=== PATIENT | male | born 1950 | race Caucasian/White ===

== ENCOUNTER 2018-01-07 15:54 | Observation (INO) ==
--- NOTE | 2018-01-07 16:19 | Emergency Department Note ---
Disposition Clinical Impression: Chest pain Qualifiers: Chest pain type: unspecified Qualified Code(s): R07.9 - Chest pain, unspecified Disposition: Admitted As Inpatient Condition: Good Referrals: Rodrigue Bradford MD [Primary Care Provider] - Time of Disposition: 17:24 Chest Pain HPI - General Chief Complaint: ED Chest Pain Stated Complaint: Chest Pain Time Seen by Provider: 01/07/18 16:08 Source: patient Limitations: no limitations - History of Present Illness HPI Narrative: 57-year-old male presents "skipped heartbeats" now symptomatic and causing chest pain "it feels like the bone my chest is about to break," shortness of breath, and diaphoresis. He saw his local intermodal truck driver, Dr. Polo, a couple weeks ago and was having skipped beats at that point in time but no symptoms. His Cardizem dose was increased from 120-180. Past medical history of insulin-dependent type 2 diabetes, hypertension, chronic pain, GERD. Severity scale (1-10): 7 - Related Data Home Medications Medication Instructions Recorded Confirmed Albuterol Sulfate [Albuterol 2 puff IH Q6HR PRN 02/16/15 09/07/16 Inhaler] Aspirin 81 mg PO DAILY 02/16/15 09/07/16 Cetirizine HCl [Zyrtec] 10 mg PO DAILY 02/16/15 09/07/16 Lisinopril/Hydrochlorothiazide 1 each PO DAILY 02/16/15 09/07/16 [Zestoretic 20-25 mg Tablet] Metformin [Glucophage] 1,000 mg PO BID 02/16/15 09/07/16 Omeprazole [PriLOSEC] 40 mg PO DAILY 02/16/15 09/07/16 OxyCODONE/APAP 10/325 [Percocet 1 each PO Q6HR PRN 02/16/15 09/07/16 10/325 MG] Liraglutide [Victoza 3-Main] 1.8 mg SQ QPM 06/07/15 09/07/16 Insulin DETEMIR [Levemir] 50 unit SQ BID 09/07/16 09/07/16 Gabapentin [Neurontin] 600 mg PO BID 02/24/17 02/24/17 Pioglitazone [Actos] 45 mg PO 0800 10/12/17 10/12/17 Diltiazem CD (24hr) [Cardizem CD] 180 mg PO DAILY 01/07/18 01/07/18 Ibuprofen [Ibuprofen] 800 mg PO TID PRN 01/07/18 01/07/18 Previous Rx's Medication Instructions Recorded Ondansetron [Zofran] 8 mg PO Q8HR #20 tablet 10/14/15 Docusate [Colace] 100 mg PO BID #20 capsule 11/13/15 Allergies Allergy/AdvReac Type Severity Reaction Status Date / Time amiodarone Allergy Difficulty Verified 01/07/18 16:11 Breathing canagliflozin [From Invokana] Allergy Rash Verified 01/07/18 16:11 iodine Allergy Anaphylaxis Verified 01/07/18 16:11 linagliptin [From Tradjenta] Allergy Rash Verified 01/07/18 16:11 Constitutional: Denies: fever, chills Eyes: Reports: vision change (blurry vision) Cardiovascular: Reports: chest pain, palpitations Respiratory: Reports: dyspnea Gastrointestinal: Reports: nausea. Denies: abdominal pain, vomiting, diarrhea Chest Pain PMH - Past Medical History Medical history: Reports: arthritis, asthma, atrial fibrillation, CHF, diabetes , GERD, hypertension, other Surgical history: Reports: orthopedic, other, prostatectomy, other Psychiatric history: Reports: depression - Social History Smoking Status: Never smoker Alcohol use: Reports: none Drug use: Reports: none Physical Exam - General Limitations: no limitations General appearance: alert, in no apparent distress - Head Head exam: atraumatic, normocephalic, normal inspection - Eye Eye exam: Present: normal appearance, PERRL, EOMI - ENT ENT exam: mucous membranes moist - Neck Neck exam: Present: normal inspection - Chest Chest inspection: Present: normal inspection, symmetric chest wall rise - Respiratory Respiratory exam: Present: normal lung sounds bilaterally - Cardiovascular Cardiovascular exam: Present: regular rate, normal rhythm, normal heart sounds - Abdominal Exam Abdominal exam: Present: soft, Non-Tender. Absent: tenderness, distention, guarding, rebound, rigidity - Extremities Exam Extremities exam: Present: normal inspection - Back Exam Back exam: Present: normal inspection - Neurological Exam Neurological exam: Present: alert, oriented X3 - Psychiatric Psychiatric exam: Present: normal affect, normal mood - Skin Skin exam: Present: warm, dry, intact, normal color Course Vital Signs Temperature 99.5 F 01/07/18 16:06 Pulse Rate 87 01/07/18 16:06 Respiratory Rate 16 01/07/18 16:06 Blood Pressure 118/76 01/07/18 16:06 O2 Sat by Pulse Oximetry 94 01/07/18 16:06 Temperature 99.5 F 01/07/18 16:06 Pulse Rate 87 01/07/18 16:06 Respiratory Rate 16 01/07/18 16:06 Blood Pressure 118/76 01/07/18 16:06 O2 Sat by Pulse Oximetry 94 01/07/18 16:06 Oxygen Delivery Oxygen Delivery Room Air Chest Pain - MDM Narrative Medical decision making narrative: 67 yo male with symptomatic palpitations. He has had palpitations without symptoms for approximately one month. He saw his local intermodal truck driver a couple weeks ago, who increased his Cardizem dose. The symptoms he is currently experiencing are chest pain, shortness of breath, and diaphoresis. He does not have a history of coronary artery disease; however, he does have past medical history of diabetes, hypertension and obesity with a BMI of 37. Normal initial laboratory workup. We will admit to the hospital to trend troponins and follow- up with a possible stress test in the morning. - Medical Records Medical records reviewed: Yes I reviewed the patient's medical records. History of atrial flutter s/p VIVI cardioversion 06/2015. On cardizem - rate was increased from 120 mg to 180 mg 12/14/2017 due to PACs. - Lab Data Lab results reviewed: Yes I reviewed the patient's lab results. - EKG Data EKG attestation: Yes I reviewed and interpreted this EKG. EKG shows normal: sinus rhythm, axis, intervals, QRS complexes Rate: normal Rhythm: NSR [place]/QRS: normal QTc: borderline Ectopy: PAC Interpretation: unchanged when compared to prior tracing (date), nonspecific ST- T wave changes Heart Score - Score History: Slightly Suspicious EKG: Non Specific repolarisation Disturbance Age: 45-65 Risk Factors: Equal/Greater than 3 risk factor or history of atherosclerotic disease Troponin: Less than normal limit HEART Score Total: 4
[2018-01-07] MEDS ORDERED: Nitroglycerin 0.4 MG TAB.SUBL SL PRN (16:37)
[2018-01-07 16:47] LABS: Basophils # 0.1 K/mcL (0.0-0.2); Basophils % 0.5 %; Eosinophils # 0.2 K/mcL (0.0-0.6); Eosinophils % 1.8 %; Hematocrit 43.8 % (37.5-50.1); Hemoglobin 14.5 g/dL (12.9-16.9); Immature Granulocytes % 0.6 % (0-4); Lymphocytes # 1.5 K/mcL (0.6-4.6); Lymphocytes % 15.8 %; Mean Corpuscular HGB Conc 33.1 g/dL (31.6-35.5); Mean Corpuscular Hemoglobin 28.7 pg (28.0-33.3); Mean Corpuscular Volume 86.7 fL (83.0-100.0); Mean Platelet Volume 10.5 fL (9.4-12.4); Monocytes # 0.7 K/mcL (0.0-1.3); Monocytes % 7.8 %; Platelet Count 239 K/mcL (140-400); Red Blood Count 5.05 M/mcL (4.19-5.50); Segmented Neutrophils % 73.5 %
[2018-01-07 16:51] LABS: Prothrombin Time 11.6 Seconds (9.4-12.1)
--- NOTE | 2018-01-07 16:57 | Emergency Department Note ---
Disposition Clinical Impression: Unstable angina Disposition: Admitted As Inpatient Forms: ED Satisfaction Letter General Adult HPI - General Chief complaint: ED Chest Pain Stated complaint: Chest Pain Time Seen by Provider: 01/07/18 16:08 Source: patient Limitations: no limitations - History of Present Illness Pain Scale: 7 - Related Data Home Medications Medication Instructions Recorded Confirmed Albuterol Sulfate [Albuterol 2 puff IH Q6HR PRN 02/16/15 09/07/16 Inhaler] Aspirin 81 mg PO DAILY 02/16/15 09/07/16 Cetirizine HCl [Zyrtec] 10 mg PO DAILY 02/16/15 09/07/16 Lisinopril/Hydrochlorothiazide 1 each PO DAILY 02/16/15 09/07/16 [Zestoretic 20-25 mg Tablet] Metformin [Glucophage] 1,000 mg PO BID 02/16/15 09/07/16 Omeprazole [PriLOSEC] 40 mg PO DAILY 02/16/15 09/07/16 OxyCODONE/APAP 10/325 [Percocet 1 each PO Q6HR PRN 02/16/15 09/07/16 10/325 MG] Liraglutide [Victoza 3-Main] 1.8 mg SQ QPM 06/07/15 09/07/16 Insulin Aspart Prot/Insuln Asp 25 units SQ TIDWM 09/07/16 09/07/16 [Novolog Mix 70-30 Vial] Insulin DETEMIR [Levemir] 50 unit SQ BID 09/07/16 09/07/16 Gabapentin [Neurontin] 600 mg PO BID 02/24/17 02/24/17 Pioglitazone [Actos] 45 mg PO 0800 02/24/17 02/24/17 Previous Rx's Medication Instructions Recorded Diltiazem CD (24hr) [Cardizem CD] 120 mg PO DAILY #30 cap.er.24h 06/30/15 Ondansetron [Zofran] 8 mg PO Q8HR #20 tablet 10/14/15 Docusate [Colace] 100 mg PO BID #20 capsule 11/13/15 Cyclobenzaprine [Flexeril] 10 mg PO TID PRN #21 tablet 11/05/17 predniSONE [PredniSONE] 20 mg PO BIDWM #10 tablet 11/05/17 Allergies Allergy/AdvReac Type Severity Reaction Status Date / Time amiodarone Allergy Difficulty Verified 01/07/18 16:11 Breathing canagliflozin [From Invokana] Allergy Rash Verified 01/07/18 16:11 iodine Allergy Anaphylaxis Verified 01/07/18 16:11 linagliptin [From Tradjenta] Allergy Rash Verified 01/07/18 16:11 Constitutional: Denies: fever, chills Eyes: Reports: vision change (blurry vision) Cardiovascular: Reports: chest pain, palpitations Respiratory: Reports: dyspnea Past Medical History - Past Medical History Medical history: Reports: arthritis, asthma, atrial fibrillation, CHF, diabetes , GERD, hypertension, other Surgical history: Reports: orthopedic, other, prostatectomy, other Psychiatric history: Reports: depression - Social History Smoking Status: Never smoker Smokeless Tobacco Status: No Alcohol use: Reports: none Drug use: Reports: none Physical Exam - General Limitations: no limitations General appearance: alert, in no apparent distress Course Vital Signs Temperature 99.5 F 01/07/18 16:06 Pulse Rate 87 01/07/18 16:06 Respiratory Rate 16 01/07/18 16:06 Blood Pressure 118/76 01/07/18 16:06 O2 Sat by Pulse Oximetry 94 01/07/18 16:06 Temperature 99.5 F 01/07/18 16:06 Pulse Rate 87 01/07/18 16:06 Respiratory Rate 16 01/07/18 16:06 Blood Pressure 118/76 01/07/18 16:06 O2 Sat by Pulse Oximetry 94 01/07/18 16:06 Oxygen Delivery Oxygen Delivery Room Air Medical Decision Making - Lab Data Result diagrams: 01/07/18 16:37 Lab Results 01/07/18 01/07/18 Range/Units 16:37 16:37 WBC 9.5 (4.3-11.1) K/mcL RBC 5.05 (4.19-5.50) M/mcL Hgb 14.5 (12.9-16.9) g/dL Hct 43.8 (37.5-50.1) % MCV 86.7 (83.0-100.0) fL MCH 28.7 (28.0-33.3) pg MCHC 33.1 (31.6-35.5) g/dL RDW 14.0 (11.5-14.5) % Plt Count 239 (140-400) K/mcL MPV 10.5 (9.4-12.4) fL Immature Gran % 0.6 (0-4) % Seg Neutrophils % 73.5 % Lymphocytes % 15.8 % Monocytes % 7.8 % Eosinophils % 1.8 % Basophils % 0.5 % Neutrophils # 7.0 (1.6-8.9) K/mcL Lymphocytes # 1.5 (0.6-4.6) K/mcL Monocytes # 0.7 (0.0-1.3) K/mcL Eosinophils # 0.2 (0.0-0.6) K/mcL Basophils # 0.1 (0.0-0.2) K/mcL PT 11.6 (9.4-12.1) Seconds INR 1.0 APTT 33.0 (26.0-36.0) Seconds Attestation Statement - Attestation Attestation: I examined this patient and my medical decision-making was reviewed with the Resident Physician. I agree with the documented findings, disposition and treatment plan as described except to the extent set forth below. 67-year-old male presents to the ER for chest pain. Substernal. Associated with nausea and some diaphoresis and shortness of breath. History of paroxysmal intrafibrillation was status post ablation and currently on Cardizem. Patient is not on Coumadin. He has not had a heart catheter in a few years. He has no previous cardiac stents. He has a known diabetic. Patient will need be admitted for ACS evaluation and possible stress test.
[2018-01-07 17:08] LABS: BUN/Creatinine Ratio 21 (6-26); Blood Urea Nitrogen 20 mg/dL (8-23); Calcium 9.5 mg/dL (8.6-10.3); Carbon Dioxide 24 mEq/L (23-29); Chloride 103 mEq/L (98-107); Glucose 212 mg/dL (70-105); Osmolality,Calculated 293 (280-300); Potassium 3.8 mEq/L (3.5-5.1); Sodium 137 mEq/L (136-145); eGFR For Non-African Americans > 60 (> 60)
[2018-01-07 17:09] LABS: Troponin I < 0.03 ng/mL (< 0.04)
[2018-01-07] MEDS ORDERED: Naloxone 0.4 MG/ML INJ IVP PRN (17:33)
[2018-01-07] MEDS ORDERED: *HR* HYDROcodone/Acet 5/325 mg TABLET PO PRN (17:33)
[2018-01-07] MEDS ORDERED: Acetaminophen 325 MG TABLET PO PRN (17:33)
[2018-01-07] MEDS ORDERED: Ondansetron 4 MG/2 ML VIAL IVP PRN (17:33)
[2018-01-07] MEDS ORDERED: *HR* OxyCODONE/APAP 10/325 TABLET PO PRN (17:35)
--- NOTE | 2018-01-07 18:56 | Internal Med History&Physical ---
Date of Encounter: 01/07/18 Time of Encounter: 18:00 Internal Medicine - H&P: HPI Chief complaint: Chest pain Admitted From: Emergency Dept Plans for Post Hospital Care: Home History of present illness: Mr. Vides is a 67 year old male with known past medical history of hypertension , hyperlipidemia, diabetes, Gerd and paroxysmal atrial flutter pt presented to ER with chest pain located left chest wall and sub sternal region, radiating to left arm, started this morning, intermittent pain and sharp pain. He did feel like the bone my chest is about to break. He denied any active CP now. He saw his campus executive director, Dr. Polo, a couple weeks ago and was having skipped beats at that point in time but no symptoms. His Cardizem dose was increased from 120 -180. Past Med Surg Social Fam HX - Past Medical History Medical history: arthritis, asthma, atrial fibrillation, CHF, diabetes, GERD, hypertension, other Additional medical history: NEUROPATHY, KIDNEY CYSTS, SCIATIA Psychiatric history: depression - Past Surgical History Surgical History: orthopedic, other, prostatectomy, other Additional surgical history: back sx. - Social History Smoking Status: Never smoker Smokeless Tobacco Status: No Alcohol use: none Drug use: none - Family History Maternal Grandmother Hx Family Cardiac Disorders: Yes Mother Family Member Ethnicity: Non- Living Status: Hx Family Cardiac Disorders: Yes Internal Medicine - H&P: Meds Albuterol Sulfate [Albuterol Inhaler] 2 puff IH Q6HR PRN 02/16/15 [History] Aspirin 81 mg PO DAILY 02/16/15 [History] Cetirizine HCl [Zyrtec] 10 mg PO DAILY 02/16/15 [History] Lisinopril/Hydrochlorothiazide [Zestoretic 20-25 mg Tablet] 1 each PO DAILY 08/28 [History] Metformin [Glucophage] 1,000 mg PO BID 02/16/15 [History] Omeprazole [PriLOSEC] 40 mg PO DAILY 02/16/15 [History] OxyCODONE/APAP 10/325 [Percocet 10/325 MG] 1 each PO Q6HR PRN 02/16/15 [History] Liraglutide [Victoza 3-Main] 1.8 mg SQ QPM 06/07/15 [History] Ondansetron [Zofran] 8 mg PO Q8HR #20 tablet 10/14/15 [Rx] Docusate [Colace] 100 mg PO BID #20 capsule 11/13/15 [Rx] Insulin DETEMIR [Levemir] 50 unit SQ BID 09/07/16 [History] Gabapentin [Neurontin] 600 mg PO BID 02/24/17 [History] Pioglitazone [Actos] 45 mg PO 0800 02/24/17 [History] Diltiazem CD (24hr) [Cardizem CD] 180 mg PO DAILY 01/07/18 [History] Ibuprofen [Ibuprofen] 800 mg PO TID PRN 01/07/18 [History] 3 Allergy/AdvReac Type Severity Reaction Status Date / Time amiodarone Allergy Difficulty Verified 01/07/18 16:11 Breathing canagliflozin [From Invokana] Allergy Rash Verified 01/07/18 16:11 iodine Allergy Anaphylaxis Verified 01/07/18 16:11 linagliptin [From Tradjenta] Allergy Rash Verified 01/07/18 16:11 All Systems PM: A 10-system review of systems was performed and is negative for pertinent findings except as documented above in the HPI. Review of systems: All the systems are reviewed everything is benign except the systems and symptoms I mentioned in the history of present illness - Constitutional Vitals: Temp Pulse Resp BP Pulse Ox 99.5 F 85 17 117/79 94 01/07/18 16:06 01/07/18 17:28 01/07/18 17:28 01/07/18 17:28 01/07/18 17:28 General appearance: Present: cooperative, A&O X 3, no acute distress, answers questions appropriately Exam: see below - Head Head exam: Present: atraumatic, normal inspection - Neck Neck exam general surgery: Present: supple - Respiratory Respiratory exam: Present: decreased breath sounds. Absent: rales, respiratory distress, rhonchi, wheezes - Cardiovascular Cardiovascular exam: Present: RRR, +S1, +S2. Absent: tachycardia - GI/Abdominal GI/Abdominal exam: Present: normal bowel sounds, soft. Absent: rebound, rigid, tenderness - Extremities Exam Extremities exam: Absent: calf tenderness, pedal edema, tenderness - Back Exam Back exam: Absent: CVA tenderness (L), CVA tenderness (R) - Neurological Exam Neurological exam: Present: alert, oriented X3 - Psychiatric Psychiatric exam: Present: normal affect, normal mood - Skin Skin exam: Absent: rash Internal Med - H&P Results - Labs CBC & Chem 7: 01/07/18 16:37 01/07/18 16:37 - Assessment and plan (1) Chest pain Current Visit: Yes Status: Acute Assessment and plan: Will admit the pt into Tele for observation Will place pt on telemetry monitor check serial troponin so far negative troponin EKG reviewed - no acute ischemic changes Cont ASA, and Nitro PRN for pain Will check FLP in AM Will get stress test on Tuesday since pt is high risk for ACS Qualifiers: Chest pain type: unspecified Qualified Code(s): R07.9 - Chest pain, unspecified (2) Paroxysmal atrial flutter Current Visit: Yes Status: Acute Assessment and plan: rate controlled with Cardizem on ASA 81mg for anti coag he had bleeding issues with ASA 325mg in the past (3) Diabetes mellitus type II, controlled Current Visit: No Status: Chronic Assessment and plan: on Levemir + ISS Qualifiers: Diabetes mellitus correction insulin use: with correction use Diabetes mellitus complication status: without complication Qualified Code(s): E11.9 - Type 2 diabetes mellitus without complications; Z79.4 - technician terminal and repeater (current) use of insulin (4) Hypertension Current Visit: No Status: Chronic Assessment and plan: stable resumed home meds Qualifiers: Hypertension type: essential hypertension Qualified Code(s): I10 - Essential (primary) hypertension - Time Spent With Patient Total time spent is greater than 50% in coordination of care (as documented) at patient's floor/unit and/or counseling patient:
[2018-01-07] MEDS ORDERED: D5% in Water 1,000 ML IVC PRN (19:01)
[2018-01-07] MEDS ORDERED: *HR* Dextrose 50 % in Water (Syg) 50 ML SYRINGE IVP PRN (19:01)
[2018-01-07] MEDS ORDERED: Dextrose Gel 15 GM/37.5 ML TUBE PO PRN ×2 (19:01)
[2018-01-07] MEDS: Insulin LISPRO 300 UNITS/3 ML VIAL SQ SCH (20:59)
[2018-01-07] MEDS: Insulin DETEMIR 100 UNIT/ML X5UNITS SQ SCH (21:01)
[2018-01-07] MEDS: Gabapentin 300 MG CAPSULE PO SCH (21:01)
[2018-01-08 05:23] LABS: Troponin I < 0.03 ng/mL (< 0.04)
[2018-01-08 05:24] LABS: Chol/HDL Ratio 6.2 (0-4.9); Cholesterol 156 mg/dL (< 200); HDL Cholesterol 25 mg/dL (40-59); LDL Cholesterol,Calculated 52 mg/dL (0-99); Triglycerides 393 mg/dL (< 150)
[2018-01-08] MEDS: Insulin LISPRO 300 UNITS/3 ML VIAL SQ SCH ×4 (08:38→20:21)
[2018-01-08] MEDS: Loratadine 10 MG TABLET PO SCH (08:39)
[2018-01-08] MEDS: Diltiazem CD (24hr) 180 MG CAPSULE PO SCH (08:39)
[2018-01-08] MEDS: Gabapentin 300 MG CAPSULE PO SCH ×2 (08:39→20:22)
[2018-01-08] MEDS: Aspirin 81 MG TAB.CHEW PO SCH (08:39)
[2018-01-08] MEDS: Insulin DETEMIR 100 UNIT/ML X5UNITS SQ SCH ×2 (08:44→20:22)
--- NOTE | 2018-01-08 13:56 | Internal Med Progress Note ---
Hospitalist Progress Note - Encounter Date of Encounter: 01/08/18 Time of Encounter: 10:00 - Subjective Interval History: Mr. Vides is a 67 year old male with known past medical history of hypertension , hyperlipidemia, diabetes, Gerd and paroxysmal atrial flutter pt presented to ER with chest pain located left chest wall and sub sternal region, radiating to left arm. Pt denied any more CP. No SOB. - Exam Vitals: Temp Pulse Resp BP Pulse Ox 98.1 F 82 16 132/83 95 01/08/18 11:59 01/08/18 11:59 01/08/18 11:59 01/08/18 11:59 01/08/18 11:59 Exam: Gen: Alert, awake, Oriented to time,place and person Chest: Diminished breath sounds B/L, No wheezing, No crackles, No rales Heart: S1S2+ RRR No murmurs Abd: Soft, NT, BS +, No organomegaly Ext: No edema, pulses are palpable, No calf tenderness Neuro : Benign findings Skin: No rash. - Assessment and Plan (1) Chest pain Current Visit: Yes Status: Acute Assessment and Plan: Trop x 3 negative EKG reviewed - no acute ischemic changes Cont ASA, and Nitro PRN for pain Reviewed FLP Will get stress test in AM since pt is high risk for ACS (2) Paroxysmal atrial flutter Current Visit: Yes Status: Acute Assessment and Plan: rate controlled with Cardizem on ASA 81mg for anti coag he had bleeding issues with ASA 325mg in the past (3) Diabetes mellitus type II, controlled Current Visit: No Status: Chronic Assessment and Plan: on Levemir + ISS (4) Hypertension Current Visit: No Status: Chronic Assessment and Plan: stable with home meds - Time Spent with Patient Total time spent is greater than 50% in coordination of care (as documented) at patient's floor/unit and/or counseling patient: Internal Medicine: Result - Labs CBC & Chem 7: 01/07/18 16:37 01/07/18 16:37 Labs: Cardiac Enzymes 01/07/18 01/08/18 Range/Units 22:44 04:25 Troponin I < 0.03 < 0.03 (< 0.04) ng/mL - ABG Interpretation ABG results: PT/INR, D-dimer PT 11.6 Seconds (9.4-12.1) 01/07/18 16:37 Consult Discharge Plan - Plan Referrals: Rodrigue Bradford MD [Primary Care Provider] - (1) Chest pain Qualifiers: Chest pain type: unspecified Qualified Code(s): R07.9 - Chest pain, unspecified (3) Diabetes mellitus type II, controlled Qualifiers: Diabetes mellitus mcc insulin use: with terminal block assembler use Diabetes mellitus complication status: without complication Qualified Code(s): E11.9 - Type 2 diabetes mellitus without complications; Z79.4 - termite exterminator (current) use of insulin (4) Hypertension Qualifiers: Hypertension type: essential hypertension Qualified Code(s): I10 - Essential (primary) hypertension
[2018-01-09] MEDS ORDERED: Regadenoson 0.4 MG/5 ML SYRINGE IVP ONE ×2 (07:37→07:55)
[2018-01-09] MEDS: Insulin LISPRO 300 UNITS/3 ML VIAL SQ SCH ×2 (09:08→11:45)
[2018-01-09] MEDS: Insulin DETEMIR 100 UNIT/ML X5UNITS SQ SCH (09:15)
[2018-01-09] MEDS: Diltiazem CD (24hr) 180 MG CAPSULE PO SCH (10:10)
[2018-01-09] MEDS: Gabapentin 300 MG CAPSULE PO SCH (10:11)
[2018-01-09] MEDS: Aspirin 81 MG TAB.CHEW PO SCH (10:11)
[2018-01-09] MEDS: Loratadine 10 MG TABLET PO SCH (10:11)
[2018-01-09 11:33] VITALS: BP 108/71
--- NOTE | 2018-01-09 12:17 | Discharge Summary ---
- NOTES TO OUTPATIENT PROVIDER Notes to Outpatient Provider: f/u with PCP in one week. f/u with Cardiology in 1- 2 weeks to discuss about switching to Metoprolol from Cardizem since it is not working for you and you still have skipped beats. Talk to your PCP to take you off the diabetic medication Actos that can worsen your shortness of breath and heart failure symptoms. Also talk to PCP , to schedule for an out pt sleepp study. Orders not resulted at time of discharge: Pending orders 01/08/18 13:56 NM gera perf SPECT multi [NM] Routine Date of Encounter: 01/09/18 Time of Encounter: 12:14 - Discharge Diagnosis (1) Chest pain Priority: Primary Status: Acute Qualifiers: Chest pain type: unspecified Qualified Code(s): R07.9 - Chest pain, unspecified (2) Paroxysmal atrial flutter Priority: Secondary Status: Acute (3) Diabetes mellitus type II, controlled Priority: Secondary Status: Chronic Qualifiers: Diabetes mellitus alf insulin use: with alf use Diabetes mellitus complication status: without complication Qualified Code(s): E11.9 - Type 2 diabetes mellitus without complications; Z79.4 - snf (current) use of insulin (4) Hypertension Priority: Secondary Status: Chronic Qualifiers: Hypertension type: essential hypertension Qualified Code(s): I10 - Essential (primary) hypertension Hospital course: Mr. Vides is a 67 year old male with known past medical history of hypertension , hyperlipidemia, diabetes, Gerd and paroxysmal atrial flutter pt presented to ER with chest pain located left chest wall and sub sternal region, radiating to left arm, started this morning, intermittent pain and sharp pain. He did feel like the bone my chest is about to break. He saw his sleeve maker, Dr. Polo, a couple weeks ago and was having skipped beats at that point in time but no symptoms. His Cardizem dose was increased from 120-180. Pt was admitted int he hospital and placed him on tele, checked his serial troponin which were negative. He denied any active CP now. He did go for stress test today which came back as negative for any ischemia. So will d/c the pt in stable condition today. - Time Spent with Patient Total time spent providing and/or coordinating discharge services: - Discharge Medications Home Medications: Albuterol Sulfate [Albuterol Inhaler] 2 puff IH Q6HR PRN 02/16/15 [History] Aspirin 81 mg PO DAILY 02/16/15 [History] Cetirizine HCl [Zyrtec] 10 mg PO DAILY 02/16/15 [History] Lisinopril/Hydrochlorothiazide [Zestoretic 20-25 mg Tablet] 1 each PO DAILY 08/28 [History] Metformin [Glucophage] 1,000 mg PO BID 02/16/15 [History] Omeprazole [PriLOSEC] 40 mg PO DAILY 02/16/15 [History] OxyCODONE/APAP 10/325 [Percocet 10/325 MG] 1 each PO Q6HR PRN 02/16/15 [History] Liraglutide [Victoza 3-Main] 1.8 mg SQ QPM 06/07/15 [History] Ondansetron [Zofran] 8 mg PO Q8HR #20 tablet 10/14/15 [Rx] Docusate [Colace] 100 mg PO BID #20 capsule 11/13/15 [Rx] Insulin DETEMIR [Levemir] 50 unit SQ BID 09/07/16 [History] Gabapentin [Neurontin] 600 mg PO BID 02/24/17 [History] Pioglitazone [Actos] 45 mg PO 0800 02/24/17 [History] Diltiazem CD (24hr) [Cardizem CD] 180 mg PO DAILY 01/07/18 [History] Nitroglycerin 0.4 mg SL Q5MIN PRN tab.subl 01/09/18 [Rx] Allergies/Adverse Reactions: 3 Allergy/AdvReac Type Severity Reaction Status Date / Time amiodarone Allergy Difficulty Verified 01/07/18 16:11 Breathing canagliflozin [From Invokana] Allergy Rash Verified 01/07/18 16:11 iodine Allergy Anaphylaxis Verified 01/07/18 16:11 linagliptin [From Tradjenta] Allergy Rash Verified 01/07/18 16:11 Date of admission: 01/07/18 17:39 Primary care physician: Rodrigue Bradford MD - Constitutional Vitals: Temp Pulse Resp BP Pulse Ox 98.4 F 81 16 108/71 95 01/09/18 11:32 01/09/18 11:32 01/09/18 11:32 01/09/18 11:32 01/09/18 11:32 General appearance: Present: cooperative, A&O X 3, no acute distress, answers questions appropriately Exam: Gen: Alert, awake, Oriented to time,place and person Chest: Diminished breath sounds B/L, No wheezing, No crackles, No rales Heart: S1S2+ RRR No murmurs Abd: Soft, NT, BS +, No organomegaly Ext: No edema, pulses are palpable, No calf tenderness Neuro : Benign findings Skin: No rash. - Patient Status Disposition: Home, Self-Care Condition: Good Overall status at discharge: patient is back to baseline - Discharge Instructions Instructions: Chest Pain (DC), Diabetes Mellitus Type 2 in Adults (DC), Chronic Hypertension (DC) Follow Up With: Rodrigue Bradford MD [Primary Care Provider] - 01/12/18 11:30 am Rodney Polo MD [Partnered Physician] - - Diet and Activity Activity: increase activity as tolerated Diet: low salt diet
--- NOTE | 2018-01-09 18:11 | Electrocardiograph Report ---
[place] [id number] Test Date: 2018-01-07 Pat Name: Jacob Vides Department: EXAM6 Room: 3B Gender: M Exterminator Termite: : [id number] Requested By: Cyndi Ogden Order Number: [id number] Reading MD: Miguel Wagner Measurements Intervals [place] Rate: 88 P: 55 GA: 159 QRS: 75 QRSD: 95 T: 78 QT: 370 QTc: 448 Interpretive Statements Sinus rhythm Atrial premature complex Nonspecific ST-T changes Electronically Signed On 01-09-2018 18:09:49 EDT by Miguel Wagner
== END 2018-01-09 13:19 | disposition home or self-care (01) ==
LOC: 3BNU 15:54 → EMEROOARM 15:54 → 3BNU 18:13
PROVIDERS: ADMIT Family Medicine; ATTEND Internal Medicine

== ENCOUNTER 2020-10-02 21:33 | Inpatient (IN) ==
[2020-10-02] MEDS ORDERED: Naloxone 0.4 MG/ML INJ IVP PRN (23:45)
[2020-10-03] MEDS ORDERED: Remdesivir 200 MG in 0.9 % Sodium Chloride 100 ML IVPB ONE (00:29)
[2020-10-03] MEDS: Acetaminophen 325 MG TABLET PO PRN ×2 (00:32→11:00)
[2020-10-03] MEDS ORDERED: *HR* Dextrose 50 % in Water (Vial) 50 ML VIAL IVP PRN (00:34)
[2020-10-03] MEDS ORDERED: Dextrose Gel 15 GM/37.5 ML TUBE PO PRN ×2 (00:34)
[2020-10-03] MEDS ORDERED: D5% in Water 1,000 ML IVC PRN (00:34)
[2020-10-03] MEDS ORDERED: *HR* OxyCODONE/APAP 10/325 TABLET PO PRN (00:36)
[2020-10-03] MEDS ORDERED: Insulin DETEMIR 100 UNIT/ML X5UNITS SUBQ SCH ×2 (00:45→21:00)
[2020-10-03] MEDS: Ipratropium 1 PUFF INHALER IH SCH ×6 (03:34→20:14)
[2020-10-03] MEDS ORDERED: *HR* Enoxaparin 40 MG/0.4 ML SYRINGE SQ SCH (06:00)
[2020-10-03 08:31] LABS: Alanine Aminotransferase 50 Units/L (7-52); Albumin 3.4 g/dL (3.5-5.7); Albumin/Globulin Ratio 1.2 (1.1-2.2); Alkaline Phosphatase 42 Units/L (34-104); Aspartate Amino Transferase 87 Units/L (13-39); BUN/Creatinine Ratio 20 (6-26); Bilirubin,Direct 0.1 mg/dL (0.0-0.2); Bilirubin,Indirect 0.2 mg/dL (0.0-1.0); Bilirubin,Total 0.3 mg/dL (0.3-1.0); Blood Urea Nitrogen 18 mg/dL (8-23); Calcium 8.4 mg/dL (8.6-10.3); Carbon Dioxide 28 mEq/L (23-29); Chloride 97 mEq/L (98-107); Chol/HDL Ratio 3.6 (0-4.9); Cholesterol 90 mg/dL (< 200); Globulin 2.9 g/dL (2.4-3.5); Glucose 284 mg/dL (70-105); HDL Cholesterol 25 mg/dL (40-59); LDL Cholesterol,Calculated 40 mg/dL (< 100); Osmolality,Calculated 290 (280-300); Potassium 3.6 mEq/L (3.5-5.1); Sodium 134 mEq/L (136-145); Total Protein 6.3 g/dL (6.4-8.9); Triglycerides 123 mg/dL (< 150); Troponin I 0.03 ng/mL (< 0.04); eGFR For African Americans > 60 (> 60); eGFR For Non-African Americans > 60 (> 60)
[2020-10-03] MEDS ORDERED: cefTRIAXone 1,000 MG in Water for inj. (sterile) 10 ML IVP SCH (09:00)
[2020-10-03] MEDS: Insulin LISPRO 300 UNITS/3 ML VIAL SUBQ SCH ×3 (10:30→17:44)
[2020-10-03] MEDS: Gabapentin 300 MG CAPSULE PO SCH ×2 (10:59→19:35)
[2020-10-03] MEDS: Azithromycin 250 MG TABLET PO SCH (10:59)
[2020-10-03] MEDS: Heparin 25,000UNIT/250ML 1/2NS 25,000 UNIT/250 ML IV.SOLN IVC SCH (11:12)
[2020-10-03] MEDS: Furosemide 40 MG/4 ML VIAL IVP SCH ×2 (11:12→19:35)
[2020-10-03] MEDS: Ondansetron 4 MG/2 ML VIAL IVP PRN (11:13)
[2020-10-03] MEDS ORDERED: *HR* Heparin 5,000 UNIT/ML VIAL IVP ONE (12:00)
[2020-10-03] MEDS ORDERED: *HR* Heparin 5,000 UNIT/ML VIAL IVP PRN (12:00)
[2020-10-03 12:11] LABS: Heparin anti-factor XA UFH 0.2 IU/mL (0.30-0.70); INR 1.3; Prothrombin Time 14.4 Seconds (9.4-12.1)
[2020-10-03 12:28] LABS: Hematocrit 43.8 % (37.5-50.1); Hemoglobin 14.2 g/dL (12.9-16.9); Mean Corpuscular HGB Conc 32.4 g/dL (31.6-35.5); Mean Corpuscular Hemoglobin 27.4 pg (28.0-33.3); Mean Corpuscular Volume 84.6 fL (83.0-100.0); Mean Platelet Volume 10.9 fL (9.4-12.4); Platelet Count 184 K/mcL (140-400); Red Blood Count 5.18 M/mcL (4.19-5.50); Red Cell Distribution Width 14.6 % (11.5-14.5); White Blood Count 6.1 K/mcL (4.3-11.1)
[2020-10-03] MEDS: cefTRIAXone 2,000 MG in Water for inj. (sterile) 20 ML IVP SCH (13:31)
[2020-10-03] MEDS: *HR* OxyCODONE/APAP 7.5/325 TABLET PO PRN (15:46)
[2020-10-03] MEDS: Aspirin Enteric Coated 81 MG Tablet PO SCH (18:36)
[2020-10-03] MEDS: Insulin DETEMIR 100 UNIT/ML X5UNITS SUBQ SCH (18:36)
[2020-10-03] MEDS ORDERED: Insulin LISPRO 300 UNITS/3 ML VIAL SUBQ SCH (21:00)
[2020-10-04] MEDS: Ipratropium 1 PUFF INHALER IH SCH ×7 (00:02→23:07)
[2020-10-04] MEDS: Remdesivir 100 MG in 0.9 % Sodium Chloride 100 ML IVPB SCH (00:48)
[2020-10-04 02:48] LABS: Basophils % 0.2 %; Hematocrit 42.2 % (37.5-50.1); Hemoglobin 13.8 g/dL (12.9-16.9); Immature Granulocytes % 0.7 % (0-4); Lymphocytes # 0.7 K/mcL (0.6-4.6); Mean Corpuscular HGB Conc 32.7 g/dL (31.6-35.5); Mean Corpuscular Hemoglobin 27.4 pg (28.0-33.3); Mean Corpuscular Volume 83.9 fL (83.0-100.0); Mean Platelet Volume 10.4 fL (9.4-12.4); Monocytes # 0.4 K/mcL (0.0-1.3); Monocytes % 8.3 %; Neutrophils # 3.3 K/mcL (1.6-8.9); Platelet Count 175 K/mcL (140-400); Red Blood Count 5.03 M/mcL (4.19-5.50); Red Cell Distribution Width 14.6 % (11.5-14.5); Segmented Neutrophils % 75.8 %; White Blood Count 4.3 K/mcL (4.3-11.1)
[2020-10-04 03:08] LABS: Alanine Aminotransferase 54 Units/L (7-52); Albumin 3.3 g/dL (3.5-5.7); Alkaline Phosphatase 42 Units/L (34-104); Aspartate Amino Transferase 83 Units/L (13-39); BUN/Creatinine Ratio 30 (6-26); Bilirubin,Direct 0.1 mg/dL (0.0-0.2); Bilirubin,Indirect 0.2 mg/dL (0.0-1.0); Bilirubin,Total 0.3 mg/dL (0.3-1.0); Blood Urea Nitrogen 26 mg/dL (8-23); Calcium 8.5 mg/dL (8.6-10.3); Carbon Dioxide 28 mEq/L (23-29); Chloride 97 mEq/L (98-107); Globulin 3.3 g/dL (2.4-3.5); Glucose 340 mg/dL (70-105); Magnesium 1.7 mg/dL (1.6-2.6); Osmolality,Calculated 300 (280-300); Potassium 3.5 mEq/L (3.5-5.1); Sodium 136 mEq/L (136-145); Total Protein 6.6 g/dL (6.4-8.9); eGFR For African Americans > 60 (> 60); eGFR For Non-African Americans > 60 (> 60)
[2020-10-04] MEDS: *HR* OxyCODONE/APAP 7.5/325 TABLET PO PRN ×3 (05:27→21:06)
[2020-10-04] MEDS ORDERED: *HR* LORazepam 2 MG/ML VIAL IVP ONE (05:34)
[2020-10-04] MEDS ORDERED: *HR* LORazepam 2 MG/ML VIAL ONE (05:35)
[2020-10-04] MEDS: Insulin DETEMIR 100 UNIT/ML X5UNITS SUBQ SCH (08:53)
[2020-10-04] MEDS: Insulin LISPRO 300 UNITS/3 ML VIAL SUBQ SCH ×5 (08:53→21:08)
[2020-10-04] MEDS: Azithromycin 250 MG TABLET PO SCH (08:54)
[2020-10-04] MEDS: Aspirin Enteric Coated 81 MG Tablet PO SCH (08:54)
[2020-10-04] MEDS: Metoprolol XL (24 HR) Succ 50 MG TAB.ER.24H PO SCH (08:54)
[2020-10-04] MEDS: Gabapentin 300 MG CAPSULE PO SCH ×2 (08:54→21:06)
[2020-10-04] MEDS: Cholecalciferol (D-3) 1,000 UNIT (25MCG) TABLET PO SCH (08:54)
[2020-10-04] MEDS: cefTRIAXone 2,000 MG in Water for inj. (sterile) 20 ML IVP SCH (08:55)
[2020-10-04] MEDS: Furosemide 40 MG/4 ML VIAL IVP SCH ×2 (08:55→21:07)
[2020-10-04] MEDS: Heparin 25,000UNIT/250ML 1/2NS 25,000 UNIT/250 ML IV.SOLN IVC SCH (08:57)
[2020-10-04] MEDS ORDERED: Insulin DETEMIR 100 UNIT/ML X5UNITS SUBQ ONE (17:32)
[2020-10-04] MEDS ORDERED: Insulin DETEMIR 100 UNIT/ML X5UNITS SUBQ SCH (21:00)
[2020-10-05] MEDS: Remdesivir 100 MG in 0.9 % Sodium Chloride 100 ML IVPB SCH (01:25)
[2020-10-05 02:00] LABS: Hematocrit 45.4 % (37.5-50.1); Hemoglobin 14.1 g/dL (12.9-16.9); Mean Corpuscular HGB Conc 31.1 g/dL (31.6-35.5); Mean Corpuscular Hemoglobin 26.4 pg (28.0-33.3); Mean Corpuscular Volume 84.9 fL (83.0-100.0); Mean Platelet Volume 10.2 fL (9.4-12.4); Platelet Count 228 K/mcL (140-400); Red Blood Count 5.35 M/mcL (4.19-5.50); Red Cell Distribution Width 14.5 % (11.5-14.5)
[2020-10-05 02:04] LABS: White Blood Count 6.8 K/mcL (4.3-11.1)
[2020-10-05 02:18] LABS: Albumin 3.5 g/dL (3.5-5.7); Bilirubin,Direct 0.1 mg/dL (0.0-0.2); Bilirubin,Indirect 0.2 mg/dL (0.0-1.0); Bilirubin,Total 0.3 mg/dL (0.3-1.0); Globulin 3.4 g/dL (2.4-3.5); Total Protein 6.9 g/dL (6.4-8.9)
[2020-10-05 02:19] LABS: BUN/Creatinine Ratio 45 (6-26); Blood Urea Nitrogen 37 mg/dL (8-23); Calcium 8.9 mg/dL (8.6-10.3); Carbon Dioxide 28 mEq/L (23-29); Chloride 98 mEq/L (98-107); Glucose 302 mg/dL (70-105); Osmolality,Calculated 304 (280-300); Potassium 3.7 mEq/L (3.5-5.1); Sodium 137 mEq/L (136-145); eGFR For African Americans > 60 (> 60); eGFR For Non-African Americans > 60 (> 60)
[2020-10-05] MEDS: Ipratropium 1 PUFF INHALER IH SCH ×5 (04:13→20:26)
[2020-10-05] MEDS: *HR* OxyCODONE/APAP 7.5/325 TABLET PO PRN ×3 (04:41→21:09)
[2020-10-05] MEDS: Gabapentin 300 MG CAPSULE PO SCH ×2 (08:00→21:09)
[2020-10-05] MEDS: Azithromycin 250 MG TABLET PO SCH (08:00)
[2020-10-05] MEDS: Metoprolol XL (24 HR) Succ 50 MG TAB.ER.24H PO SCH (08:01)
[2020-10-05] MEDS: Aspirin Enteric Coated 81 MG Tablet PO SCH (08:01)
[2020-10-05] MEDS: Cholecalciferol (D-3) 1,000 UNIT (25MCG) TABLET PO SCH (08:01)
[2020-10-05] MEDS: Insulin LISPRO 300 UNITS/3 ML VIAL SUBQ SCH ×7 (08:02→21:10)
[2020-10-05] MEDS: Furosemide 40 MG/4 ML VIAL IVP SCH ×2 (08:04→21:10)
[2020-10-05] MEDS: cefTRIAXone 2,000 MG in Water for inj. (sterile) 20 ML IVP SCH (08:04)
[2020-10-05] MEDS ORDERED: Insulin DETEMIR 100 UNIT/ML X5UNITS SUBQ SCH (09:00)
[2020-10-05] MEDS: Heparin 25,000UNIT/250ML 1/2NS 25,000 UNIT/250 ML IV.SOLN IVC SCH (12:37)
[2020-10-05] MEDS: Insulin DETEMIR 100 UNIT/ML X5UNITS SUBQ SCH (21:10)
[2020-10-05] MEDS: Artificial Tears SOLN 15 ML BOTTLE BOTH EYES SCH (22:19)
[2020-10-05] MEDS: Chloraseptic Spray 177 ML BOTTLE MM SCH (22:19)
[2020-10-06] MEDS: Ipratropium 1 PUFF INHALER IH SCH ×7 (00:26→23:19)
[2020-10-06] MEDS: Remdesivir 100 MG in 0.9 % Sodium Chloride 100 ML IVPB SCH (01:36)
[2020-10-06 03:32] LABS: Basophils # 0.1 K/mcL (0.0-0.2); Basophils % 0.5 %; Hematocrit 45.8 % (37.5-50.1); Hemoglobin 14.9 g/dL (12.9-16.9); Immature Granulocytes % 1.4 % (0-4); Lymphocytes # 0.9 K/mcL (0.6-4.6); Lymphocytes % 8.7 %; Mean Corpuscular HGB Conc 32.5 g/dL (31.6-35.5); Mean Corpuscular Hemoglobin 27.3 pg (28.0-33.3); Mean Corpuscular Volume 83.9 fL (83.0-100.0); Mean Platelet Volume 10.4 fL (9.4-12.4); Monocytes % 9.3 %; Neutrophils # 8.5 K/mcL (1.6-8.9); Platelet Count 276 K/mcL (140-400); Red Blood Count 5.46 M/mcL (4.19-5.50); Red Cell Distribution Width 14.3 % (11.5-14.5); Segmented Neutrophils % 80.1 %; White Blood Count 10.6 K/mcL (4.3-11.1)
[2020-10-06 03:50] LABS: BUN/Creatinine Ratio 55 (6-26); Blood Urea Nitrogen 41 mg/dL (8-23); Calcium 9.1 mg/dL (8.6-10.3); Carbon Dioxide 30 mEq/L (23-29); Chloride 99 mEq/L (98-107); Glucose 188 mg/dL (70-105); Osmolality,Calculated 305 (280-300); Potassium 3.5 mEq/L (3.5-5.1); Sodium 140 mEq/L (136-145); eGFR For African Americans > 60 (> 60); eGFR For Non-African Americans > 60 (> 60)
[2020-10-06 03:51] LABS: Albumin 3.5 g/dL (3.5-5.7); Bilirubin,Direct 0.2 mg/dL (0.0-0.2); Bilirubin,Indirect 0.2 mg/dL (0.0-1.0); Bilirubin,Total 0.4 mg/dL (0.3-1.0); Globulin 3.5 g/dL (2.4-3.5)
[2020-10-06 03:53] LABS: Platelet Estimate Normal (Normal)
[2020-10-06] MEDS: Aspirin Enteric Coated 81 MG Tablet PO SCH (08:02)
[2020-10-06] MEDS: *HR* OxyCODONE/APAP 7.5/325 TABLET PO PRN (08:02)
[2020-10-06] MEDS: Azithromycin 250 MG TABLET PO SCH (08:02)
[2020-10-06] MEDS: Metoprolol XL (24 HR) Succ 50 MG TAB.ER.24H PO SCH (08:03)
[2020-10-06] MEDS: Insulin LISPRO 300 UNITS/3 ML VIAL SUBQ SCH ×7 (08:04→19:51)
[2020-10-06] MEDS: Cholecalciferol (D-3) 1,000 UNIT (25MCG) TABLET PO SCH (08:04)
[2020-10-06] MEDS: Gabapentin 300 MG CAPSULE PO SCH ×2 (08:04→19:50)
[2020-10-06] MEDS: Insulin DETEMIR 100 UNIT/ML X5UNITS SUBQ SCH ×2 (08:05→19:50)
[2020-10-06] MEDS: cefTRIAXone 2,000 MG in Water for inj. (sterile) 20 ML IVP SCH (08:06)
[2020-10-06] MEDS: Furosemide 40 MG/4 ML VIAL IVP SCH ×2 (08:06→19:52)
[2020-10-06] MEDS: Chloraseptic Spray 177 ML BOTTLE MM SCH ×3 (08:07→19:52)
[2020-10-06 10:58] LABS: VBG HCO3 30 mEq/L (21-27); VBG PCO2 43 mmHg (41-51); VBG PH 7.46 pH Units (7.32-7.42); VBG PO2 144 mmHg (25-50)
[2020-10-06 11:33] LABS: C-Reactive Protein 29 mg/L (Less than 10)
[2020-10-06] MEDS: *HR* LORazepam 1 MG TABLET PO PRN ×2 (12:15→21:54)
[2020-10-06] MEDS: Ondansetron 4 MG/2 ML VIAL IVP PRN (12:15)
[2020-10-06] MEDS: Artificial Tears SOLN 15 ML BOTTLE BOTH EYES SCH (19:51)
[2020-10-06] MEDS: Heparin 25,000UNIT/250ML 1/2NS 25,000 UNIT/250 ML IV.SOLN IVC SCH (21:05)
[2020-10-06] MEDS: Melatonin 3 MG TABLET PO PRN (21:54)
[2020-10-07 02:52] LABS: Basophils # 0.1 K/mcL (0.0-0.2); Basophils % 0.6 %; Hematocrit 48.3 % (37.5-50.1); Hemoglobin 15.7 g/dL (12.9-16.9); Immature Granulocytes % 2.5 % (0-4); Lymphocytes # 1.1 K/mcL (0.6-4.6); Mean Corpuscular HGB Conc 32.5 g/dL (31.6-35.5); Mean Corpuscular Hemoglobin 27.3 pg (28.0-33.3); Mean Corpuscular Volume 83.9 fL (83.0-100.0); Mean Platelet Volume 10.3 fL (9.4-12.4); Monocytes # 0.7 K/mcL (0.0-1.3); Monocytes % 4.9 %; Neutrophils # 12.8 K/mcL (1.6-8.9); Platelet Count 304 K/mcL (140-400); Red Blood Count 5.76 M/mcL (4.19-5.50); Red Cell Distribution Width 14.5 % (11.5-14.5); White Blood Count 15.1 K/mcL (4.3-11.1)
[2020-10-07 03:16] LABS: Alanine Aminotransferase 96 Units/L (7-52); Albumin 3.5 g/dL (3.5-5.7); Alkaline Phosphatase 66 Units/L (34-104); Aspartate Amino Transferase 93 Units/L (13-39); BUN/Creatinine Ratio 52 (6-26); Bilirubin,Direct 0.1 mg/dL (0.0-0.2); Bilirubin,Indirect 0.4 mg/dL (0.0-1.0); Bilirubin,Total 0.5 mg/dL (0.3-1.0); Blood Urea Nitrogen 44 mg/dL (8-23); Calcium 8.9 mg/dL (8.6-10.3); Carbon Dioxide 27 mEq/L (23-29); Chloride 100 mEq/L (98-107); Globulin 3.5 g/dL (2.4-3.5); Glucose 170 mg/dL (70-105); Osmolality,Calculated 303 (280-300); Potassium 3.5 mEq/L (3.5-5.1); Sodium 139 mEq/L (136-145); eGFR For African Americans > 60 (> 60); eGFR For Non-African Americans > 60 (> 60)
[2020-10-07] MEDS: Ipratropium 1 PUFF INHALER IH SCH ×6 (03:46→23:35)
[2020-10-07] MEDS: Heparin 25,000UNIT/250ML 1/2NS 25,000 UNIT/250 ML IV.SOLN IVC SCH ×2 (07:30→17:59)
[2020-10-07] MEDS: Insulin LISPRO 300 UNITS/3 ML VIAL SUBQ SCH ×8 (07:31→19:43)
[2020-10-07] MEDS: Remdesivir 100 MG in 0.9 % Sodium Chloride 100 ML IVPB SCH (07:32)
[2020-10-07] MEDS: Metoprolol XL (24 HR) Succ 50 MG TAB.ER.24H PO SCH (07:54)
[2020-10-07] MEDS: Azithromycin 250 MG TABLET PO SCH (07:54)
[2020-10-07] MEDS: Aspirin Enteric Coated 81 MG Tablet PO SCH (07:54)
[2020-10-07] MEDS: Cholecalciferol (D-3) 1,000 UNIT (25MCG) TABLET PO SCH (07:54)
[2020-10-07] MEDS: Gabapentin 300 MG CAPSULE PO SCH ×2 (07:54→20:39)
[2020-10-07] MEDS: Furosemide 40 MG/4 ML VIAL IVP SCH (07:55)
[2020-10-07] MEDS: Chloraseptic Spray 177 ML BOTTLE MM SCH ×3 (07:55→20:38)
[2020-10-07] MEDS: Insulin DETEMIR 100 UNIT/ML X5UNITS SUBQ SCH ×2 (07:56→20:39)
[2020-10-07] MEDS: cefTRIAXone 2,000 MG in Water for inj. (sterile) 20 ML IVP SCH (07:56)
[2020-10-07] MEDS: *HR* OxyCODONE/APAP 7.5/325 TABLET PO PRN (12:51)
[2020-10-07 14:57] LABS: VBG HCO3 33 mEq/L (21-27); VBG PCO2 40 mmHg (41-51); VBG PH 7.53 pH Units (7.32-7.42); VBG PO2 99 mmHg (25-50)
[2020-10-07] MEDS: polyethylene glycoL 3350 17 GM POWD.PACK PO SCH (20:39)
[2020-10-07] MEDS: Artificial Tears SOLN 15 ML BOTTLE BOTH EYES SCH (20:39)
[2020-10-07] MEDS: *HR* Heparin 5,000 UNIT/ML VIAL IVP PRN (20:40)
[2020-10-08] MEDS: Melatonin 3 MG TABLET PO PRN
[2020-10-08 02:38] LABS: Basophils # 0.1 K/mcL (0.0-0.2); Basophils % 0.6 %; Hematocrit 47.2 % (37.5-50.1); Hemoglobin 14.9 g/dL (12.9-16.9); Immature Granulocytes % 1.9 % (0-4); Lymphocytes % 5.9 %; Mean Corpuscular HGB Conc 31.6 g/dL (31.6-35.5); Mean Corpuscular Hemoglobin 26.6 pg (28.0-33.3); Mean Corpuscular Volume 84.3 fL (83.0-100.0); Mean Platelet Volume 10.2 fL (9.4-12.4); Monocytes # 0.9 K/mcL (0.0-1.3); Monocytes % 5.6 %; Platelet Count 308 K/mcL (140-400); Red Cell Distribution Width 14.4 % (11.5-14.5); White Blood Count 16.7 K/mcL (4.3-11.1)
[2020-10-08 02:54] LABS: BUN/Creatinine Ratio 62 (6-26); Blood Urea Nitrogen 46 mg/dL (8-23); Calcium 8.7 mg/dL (8.6-10.3); Carbon Dioxide 28 mEq/L (23-29); Chloride 97 mEq/L (98-107); Glucose 204 mg/dL (70-105); Osmolality,Calculated 302 (280-300); Potassium 3.5 mEq/L (3.5-5.1); Sodium 137 mEq/L (136-145); eGFR For African Americans > 60 (> 60); eGFR For Non-African Americans > 60 (> 60)
[2020-10-08 03:02] LABS: Neutrophils # 14.4 K/mcL (1.6-8.9)
[2020-10-08] MEDS: Heparin 25,000UNIT/250ML 1/2NS 25,000 UNIT/250 ML IV.SOLN IVC SCH (03:10)
[2020-10-08] MEDS: Ipratropium 1 PUFF INHALER IH SCH ×5 (03:23→20:26)
[2020-10-08 03:32] LABS: Platelet Estimate Normal (Normal); Reactive Lymphocytes Present (Not Present)
[2020-10-08] MEDS: *HR* LORazepam 1 MG TABLET PO PRN ×5 (04:44→22:47)
[2020-10-08] MEDS: Cholecalciferol (D-3) 1,000 UNIT (25MCG) TABLET PO SCH (08:36)
[2020-10-08] MEDS: Gabapentin 300 MG CAPSULE PO SCH ×2 (08:36→20:16)
[2020-10-08] MEDS: Metoprolol XL (24 HR) Succ 50 MG TAB.ER.24H PO SCH (08:37)
[2020-10-08] MEDS: Aspirin Enteric Coated 81 MG Tablet PO SCH (08:37)
[2020-10-08] MEDS: polyethylene glycoL 3350 17 GM POWD.PACK PO SCH ×2 (08:37→20:14)
[2020-10-08] MEDS: Chloraseptic Spray 177 ML BOTTLE MM SCH (08:37)
[2020-10-08] MEDS: Insulin LISPRO 300 UNITS/3 ML VIAL SUBQ SCH ×7 (08:45→20:16)
[2020-10-08] MEDS ORDERED: Furosemide 20 MG TABLET PO SCH (09:00)
[2020-10-08] MEDS ORDERED: Dexamethasone Sodium Phos/PF 10 MG/ML VIAL IVP SCH (09:00)
[2020-10-08] MEDS: Insulin DETEMIR 100 UNIT/ML X5UNITS SUBQ SCH ×2 (09:38→20:16)
[2020-10-08] MEDS: *HR* Heparin 5,000 UNIT/ML VIAL IVP PRN (11:23)
[2020-10-08] MEDS ORDERED: Chloraseptic Spray 177 ML BOTTLE MM PRN (12:43)
[2020-10-08] MEDS ORDERED: Saliva Stimulant 44.3ml BOTTLE PO PRN (12:43)
[2020-10-08] MEDS ORDERED: Saline Nasal Spray 44 ML BOTTLE NS PRN (12:43)
[2020-10-08] MEDS ORDERED: Artificial Tears SOLN 15 ML BOTTLE BOTH EYES PRN (12:43)
[2020-10-08] MEDS ORDERED: Chlorhexidine Rinse 15 ML MOUTHWASH MM SCH (21:00)
[2020-10-09] MEDS: Ipratropium 1 PUFF INHALER IH SCH ×7 (00:21→23:45)
[2020-10-09 00:30] LABS: Basophils # 0.1 K/mcL (0.0-0.2); Basophils % 0.6 %; Eosinophils % 0.1 %; Hematocrit 48.3 % (37.5-50.1); Hemoglobin 15.5 g/dL (12.9-16.9); Immature Granulocytes % 2.3 % (0-4); Lymphocytes % 5.4 %; Mean Corpuscular HGB Conc 32.1 g/dL (31.6-35.5); Mean Platelet Volume 10.3 fL (9.4-12.4); Monocytes # 0.8 K/mcL (0.0-1.3); Monocytes % 4.1 %; Neutrophils # 15.9 K/mcL (1.6-8.9); Platelet Count 334 K/mcL (140-400); Red Blood Count 5.75 M/mcL (4.19-5.50); Red Cell Distribution Width 14.5 % (11.5-14.5); Segmented Neutrophils % 87.5 %; White Blood Count 18.2 K/mcL (4.3-11.1)
[2020-10-09 01:12] LABS: Alanine Aminotransferase 62 Units/L (7-52); Albumin 3.3 g/dL (3.5-5.7); Albumin/Globulin Ratio 0.9 (1.1-2.2); Alkaline Phosphatase 85 Units/L (34-104); Aspartate Amino Transferase 54 Units/L (13-39); BUN/Creatinine Ratio 46 (6-26); Bilirubin,Total 0.7 mg/dL (0.3-1.0); Blood Urea Nitrogen 40 mg/dL (8-23); C-Reactive Protein 129 mg/L (Less than 10); Calcium 8.9 mg/dL (8.6-10.3); Carbon Dioxide 32 mEq/L (23-29); Chloride 95 mEq/L (98-107); Ferritin 1185 ng/mL (20-250); Globulin 3.6 g/dL (2.4-3.5); Glucose 144 mg/dL (70-105); Lactate Dehydrogenase 814 Units/L (140-271); Magnesium 2.6 mg/dL (1.6-2.6); Osmolality,Calculated 294 (280-300); Phosphorous 2.4 mg/dL (2.7-4.5); Potassium 3.4 mEq/L (3.5-5.1); Sodium 136 mEq/L (136-145); Total Protein 6.9 g/dL (6.4-8.9); eGFR For African Americans > 60 (> 60); eGFR For Non-African Americans > 60 (> 60)
[2020-10-09] MEDS: Dexmedetomidine HCl 400 MCG/100 ML MLS IVC SCH ×5 (01:38→18:17)
[2020-10-09 03:30] LABS: ABG Base Excess 8 mEq/L (-2 to 3); ABG HCO3 31 mEq/L (21-27); ABG Oxygen Saturation 92 % (95-98); ABG PCO2 36 mmHg (35-45); ABG PH 7.53 pH Units (7.32-7.45); ABG PO2 55 mmHg (85-104); ABG TCO2 32 mEq/L (20-26); Blood Gas Modality NIV
[2020-10-09] MEDS ORDERED: Artificial Tears SOLN 15 ML BOTTLE BOTH EYES PRN ×2 (04:23→10:54)
[2020-10-09] MEDS ORDERED: 0.9 % Sodium Chloride 1,000 ML ONE (04:44)
[2020-10-09] MEDS ORDERED: Norepinephrine 4 MG/254 ML IV.SOLN IVC SCH (05:00)
[2020-10-09] MEDS ORDERED: Cisatracurium 200 MG in 0.9 % Sodium Chloride 180 ML IVC SCH (05:00)
[2020-10-09] MEDS: FentaNYL (PF) 1,000 MCG/100 ML IV.SOLN IVC SCH ×2 (05:30→08:43)
[2020-10-09] MEDS ORDERED: Midazolam HCl 50 MG/100 ML IV.SOLN IVC SCH (05:45)
[2020-10-09] MEDS: Heparin 25,000UNIT/250ML 1/2NS 25,000 UNIT/250 ML IV.SOLN IVC SCH (06:10)
[2020-10-09 06:11] LABS: ABG Base Excess 5 mEq/L (-2 to 3); ABG HCO3 33 mEq/L (21-27); ABG Oxygen Saturation 87 % (95-98); ABG PCO2 65 mmHg (35-45); ABG PH 7.31 pH Units (7.32-7.45); ABG PO2 60 mmHg (85-104); ABG TCO2 35 mEq/L (20-26); Blood Gas VT 430 cc
[2020-10-09] MEDS ORDERED: Pantoprazole 40 MG VIAL IVP SCH (06:30)
[2020-10-09] MEDS ORDERED: Artificial Tears SOLN 15 ML BOTTLE BOTH EYES SCH (08:00)
[2020-10-09] MEDS ORDERED: Furosemide 40 MG/4 ML VIAL IVP ONE (08:09)
[2020-10-09 08:16] LABS: ABG Base Excess 4 mEq/L (-2 to 3); ABG HCO3 38 mEq/L (21-27); ABG Oxygen Saturation 83 % (95-98); ABG PCO2 111 mmHg (35-45); ABG PH 7.14 pH Units (7.32-7.45); ABG PO2 66 mmHg (85-104); ABG TCO2 41 mEq/L (20-26); Blood Gas VT 430 cc
[2020-10-09] MEDS ORDERED: Multivit/Ca/Min/Fe/FA 1 TAB TABLET PO SCH (09:00)
[2020-10-09] MEDS ORDERED: Metoprolol XL (24 HR) Succ 50 MG TAB.ER.24H PO SCH (09:00)
[2020-10-09] MEDS ORDERED: Cholecalciferol (D-3) 1,000 UNIT (25MCG) TABLET PO SCH (09:00)
[2020-10-09] MEDS ORDERED: Chlorhexidine Rinse 15 ML MOUTHWASH MM SCH (09:00)
[2020-10-09] MEDS: Insulin LISPRO 300 UNITS/3 ML VIAL SUBQ SCH ×4 (09:21→20:22)
[2020-10-09] MEDS: Piperacillin/Tazobactam 3.375 GM in 0.9 % Sodium Chloride Mini Bag 100 ML IVPB SCH ×2 (09:22→16:26)
[2020-10-09] MEDS: polyethylene glycoL 3350 17 GM POWD.PACK PO SCH (09:23)
[2020-10-09] MEDS: Cholecalciferol (D-3) 1,000 UNIT (25MCG) TABLET PO SCH (09:23)
[2020-10-09] MEDS: Gabapentin 300 MG CAPSULE PO SCH ×2 (09:23→20:56)
[2020-10-09] MEDS: Aspirin Enteric Coated 81 MG Tablet PO SCH (09:23)
[2020-10-09] MEDS: Insulin DETEMIR 100 UNIT/ML X5UNITS SUBQ SCH ×2 (09:24→20:20)
[2020-10-09 10:06] LABS: ABG Base Excess 1 mEq/L (-2 to 3); ABG HCO3 36 mEq/L (21-27); ABG Oxygen Saturation 95 % (95-98); ABG PCO2 111 mmHg (35-45); ABG PH 7.12 pH Units (7.32-7.45); ABG PO2 107 mmHg (85-104); ABG TCO2 40 mEq/L (20-26); Blood Gas VT 430 cc
[2020-10-09 10:54] LABS: ABG Base Excess 3 mEq/L (-2 to 3); ABG HCO3 36 mEq/L (21-27); ABG Oxygen Saturation 97 % (95-98); ABG PCO2 98 mmHg (35-45); ABG PH 7.17 pH Units (7.32-7.45); ABG PO2 118 mmHg (85-104); ABG TCO2 39 mEq/L (20-26); Blood Gas VT 450 cc
[2020-10-09] MEDS ORDERED: *HR* Dextrose 50 % in Water (Vial) 50 ML VIAL IVP PRN (10:54)
[2020-10-09] MEDS ORDERED: *HR* Heparin 5,000 UNIT/ML VIAL IVP PRN ×2 (10:54)
[2020-10-09] MEDS ORDERED: Acetaminophen 325 MG TABLET PO PRN (10:54)
[2020-10-09] MEDS ORDERED: *HR* LORazepam 1 MG TABLET PO PRN (10:54)
[2020-10-09] MEDS ORDERED: Dextrose Gel 15 GM/37.5 ML TUBE PO PRN ×2 (10:54)
[2020-10-09] MEDS ORDERED: Ondansetron 4 MG/2 ML VIAL IVP PRN (10:54)
[2020-10-09] MEDS ORDERED: D5% in Water 1,000 ML IVC PRN (10:54)
[2020-10-09] MEDS ORDERED: Saline Nasal Spray 44 ML BOTTLE NS PRN (10:54)
[2020-10-09] MEDS ORDERED: Naloxone 0.4 MG/ML INJ IVP PRN (10:54)
[2020-10-09] MEDS ORDERED: Chloraseptic Spray 177 ML BOTTLE MM PRN (10:54)
[2020-10-09] MEDS ORDERED: Saliva Stimulant 44.3ml BOTTLE PO PRN (10:54)
[2020-10-09] MEDS ORDERED: FentaNYL (PF) 1,000 MCG/100 ML IV.SOLN IVC SCH (10:54)
[2020-10-09] MEDS ORDERED: Heparin 25,000UNIT/250ML 1/2NS 25,000 UNIT/250 ML IV.SOLN IVC SCH (10:54)
[2020-10-09] MEDS: Midazolam HCl 50 MG/100 ML IV.SOLN IVC SCH ×2 (11:00→23:22)
[2020-10-09 11:02] LABS: Bilirubin,Urine Negative (Negative); Blood,Urine Moderate (Negative); Clarity,Urine Turbid (Clear); Color,Urine Yellow (Yellow); Glucose,Urine (UA) Normal (Normal); Hyaline Casts,Urine Few per lpf (None Seen); Ketones,Urine Negative (Negative); Leukocyte Esterase,Urine Negative (Negative); Mucus,Urine Few per lpf (None-Few); Nitrite,Urine Negative (Negative); PH,Urine 5.5 pH Units (5.0-8.0); Protein,Urine 50 mg/dL (Neg-Trace); RBC,Urine 0-3 per hpf (0-3); Renal Epithelial Cells,Urine Few per hpf (None-Few); Squamous Epithelial Cell,Urine Few per hpf (None-Few); Transitional Epi Cells,Urine Moderate per hpf (None-Few); Urobilinogen,Urine Normal (Normal)
[2020-10-09] MEDS: Norepinephrine 4 MG/254 ML IV.SOLN IVC SCH ×2 (11:29→17:03)
[2020-10-09] MEDS ORDERED: Insulin LISPRO 300 UNITS/3 ML VIAL SUBQ SCH ×3 (11:30→21:00)
[2020-10-09] MEDS: Artificial Tears SOLN 15 ML BOTTLE BOTH EYES SCH ×3 (13:13→20:23)
[2020-10-09 13:40] LABS: ABG Base Excess 3 mEq/L (-2 to 3); ABG HCO3 34 mEq/L (21-27); ABG Oxygen Saturation 99 % (95-98); ABG PCO2 82 mmHg (35-45); ABG PH 7.22 pH Units (7.32-7.45); ABG PO2 166 mmHg (85-104); ABG TCO2 37 mEq/L (20-26); Blood Gas VT 450 cc
[2020-10-09] MEDS: Cisatracurium 200 MG in 0.9 % Sodium Chloride 180 ML IVC SCH (15:00)
[2020-10-09] MEDS ORDERED: *HR* Metoprolol 5 MG/5 ML VIAL IVP PRN (15:27)
[2020-10-09 18:14] LABS: Albumin 2.7 g/dL (3.5-5.7); Albumin/Globulin Ratio 0.8 (1.1-2.2); Bilirubin,Total 0.7 mg/dL (0.3-1.0); Calcium 7.8 mg/dL (8.6-10.3); Globulin 3.6 g/dL (2.4-3.5); Potassium 4.3 mEq/L (3.5-5.1); Total Protein 6.3 g/dL (6.4-8.9)
[2020-10-09] MEDS: Chlorhexidine Rinse 15 ML MOUTHWASH MM SCH (20:21)
[2020-10-09] MEDS ORDERED: polyethylene glycoL 3350 17 GM POWD.PACK PO SCH (21:00)
[2020-10-09] MEDS ORDERED: Melatonin 3 MG TABLET PO PRN (21:00)
[2020-10-09] MEDS ORDERED: Acetaminophen 650 MG RECTAL SUPP RC ONE (21:27)
[2020-10-09] MEDS: FentaNYL (PF) 2,500 MCG/50 ML IV.SOLN IVC SCH (23:10)
[2020-10-10] MEDS: Artificial Tears SOLN 15 ML BOTTLE BOTH EYES SCH ×3 (00:13→08:12)
[2020-10-10] MEDS: Piperacillin/Tazobactam 3.375 GM in 0.9 % Sodium Chloride Mini Bag 100 ML IVPB SCH ×2 (00:16→08:17)
[2020-10-10] MEDS: Insulin LISPRO 300 UNITS/3 ML VIAL SUBQ SCH ×3 (00:30→08:53)
[2020-10-10] MEDS: Norepinephrine 4 MG/254 ML IV.SOLN IVC SCH ×3 (00:30→09:38)
[2020-10-10] MEDS: Cisatracurium 200 MG in 0.9 % Sodium Chloride 180 ML IVC SCH ×2 (02:05→10:02)
[2020-10-10] MEDS ORDERED: Vasopressin 40 UNIT in D5% in Water 100 ML IVC SCH (03:00)
[2020-10-10] MEDS: Ipratropium 1 PUFF INHALER IH SCH ×2 (03:45→07:42)
[2020-10-10 05:02] LABS: ABG Base Excess -2 mEq/L (-2 to 3); ABG HCO3 29 mEq/L (21-27); ABG Oxygen Saturation 100 % (95-98); ABG PCO2 73 mmHg (35-45); ABG PO2 243 mmHg (85-104); ABG TCO2 31 mEq/L (20-26); Blood Gas Modality ASSIST CONTROL; Blood Gas VT 440 cc
[2020-10-10 05:25] LABS: VBG Ionized Calcium 0.94 mmol/L (1.15-1.35)
[2020-10-10 05:32] LABS: Albumin 2.3 g/dL (3.5-5.7); Albumin/Globulin Ratio 0.8 (1.1-2.2); Bilirubin,Total 0.9 mg/dL (0.3-1.0); Calcium 6.7 mg/dL (8.6-10.3); Globulin 2.9 g/dL (2.4-3.5); Magnesium 2.4 mg/dL (1.6-2.6); Phosphorous 8.5 mg/dL (2.7-4.5); Potassium 3.8 mEq/L (3.5-5.1); Total Protein 5.2 g/dL (6.4-8.9)
[2020-10-10] MEDS ORDERED: Calcium Chloride 2,000 MG in 0.9 % Sodium Chloride 100 ML IVPB ONE (06:00)
[2020-10-10] MEDS: Dexmedetomidine HCl 400 MCG/100 ML MLS IVC SCH (06:22)
[2020-10-10] MEDS ORDERED: Pantoprazole 40 MG VIAL IVP SCH (06:30)
[2020-10-10 06:55] LABS: Basophils # 0.1 K/mcL (0.0-0.2); Basophils % 0.4 %; Eosinophils % 0.1 %; Hematocrit 44.8 % (37.5-50.1); Immature Granulocytes % 3.4 % (0-4); Lymphocytes # 0.9 K/mcL (0.6-4.6); Lymphocytes % 3.7 %; Mean Corpuscular Hemoglobin 27.7 pg (28.0-33.3); Mean Corpuscular Volume 89.4 fL (83.0-100.0); Mean Platelet Volume 11.1 fL (9.4-12.4); Monocytes # 1.3 K/mcL (0.0-1.3); Monocytes % 5.6 %; Neutrophils # 20.4 K/mcL (1.6-8.9); Platelet Count 269 K/mcL (140-400); Red Blood Count 5.01 M/mcL (4.19-5.50); Red Cell Distribution Width 14.8 % (11.5-14.5); Segmented Neutrophils % 86.8 %; White Blood Count 23.5 K/mcL (4.3-11.1)
[2020-10-10 06:58] LABS: Hemoglobin 13.9 g/dL (12.9-16.9)
[2020-10-10] MEDS: Gabapentin 300 MG CAPSULE PO SCH (08:13)
[2020-10-10] MEDS: Chlorhexidine Rinse 15 ML MOUTHWASH MM SCH (08:17)
[2020-10-10] MEDS: Insulin DETEMIR 100 UNIT/ML X5UNITS SUBQ SCH (08:54)
[2020-10-10] MEDS ORDERED: Aspirin 81 MG TAB.CHEW GTUBE SCH (09:00)
[2020-10-10] MEDS ORDERED: Aspirin Enteric Coated 81 MG Tablet PO SCH (09:00)
[2020-10-10] MEDS ORDERED: Cholecalciferol (D-3) 1,000 UNIT (25MCG) TABLET PO SCH (09:00)
[2020-10-10] MEDS ORDERED: Dexamethasone Sodium Phos/PF 10 MG/ML VIAL IVP SCH (09:00)
[2020-10-10] MEDS ORDERED: Multivit/Ca/Min/Fe/FA 1 TAB TABLET PO SCH (09:00)
[2020-10-10] MEDS ORDERED: Metoprolol XL (24 HR) Succ 50 MG TAB.ER.24H PO SCH (09:00)
[2020-10-10 09:07] LABS: ABG Base Excess -3 mEq/L (-2 to 3); ABG HCO3 27 mEq/L (21-27); ABG Oxygen Saturation 96 % (95-98); ABG PCO2 75 mmHg (35-45); ABG PH 7.17 pH Units (7.32-7.45); ABG PO2 108 mmHg (85-104); ABG TCO2 30 mEq/L (20-26); Blood Gas Modality AF; Blood Gas VT 40 cc
[2020-10-10] MEDS: FentaNYL (PF) 2,500 MCG/50 ML IV.SOLN IVC SCH (09:44)
[2020-10-10] MEDS: Midazolam HCl 50 MG/100 ML IV.SOLN IVC SCH (09:46)
[2020-10-10 10:01] VITALS: BP 122/61
== END 2020-10-10 10:55 | disposition short-term general hospital (02) | DRG 871 ==
LOC: 2NENU → SUATTDRO 23:18 → 2NNU 10-03 15:34 → ICNU 10-09 05:03
PROVIDERS: ADMIT Student in an Organized Health Care Education/Training Program; ATTEND Internal Medicine